=== PATIENT | male | born 1965 | race Caucasian/White ===

== ENCOUNTER 2023-06-07 15:47 | Emergency (ER) | payer BC, OTHER ==
[2023-06-07] MEDS ORDERED: Diphtheria,Pertussis(Acell),Tetanus Vaccine 0.5 ML Syringe IM ONE (15:51)
[2023-06-07] MEDS ORDERED: Bacitracin Oint 1 GM U/D Packet TOP ONE ×2 (15:52→18:44)
[2023-06-07] MEDS ORDERED: Lidocaine 1% with EPINEPHrine 1:100,000 50 ML MDV SUBCUT ONE (15:52)
[2023-06-07] MEDS ORDERED: ceFAZolin 1 GM Vial IM ONE (15:53)
[2023-06-07] MEDS ORDERED: Sodium Chloride 0.9% 10 ML Syringe FLUSH PRN (15:54)
[2023-06-07] MEDS ORDERED: fentaNYL 50 MCG/ML SDV IVPUSH ONE (15:55)
[2023-06-07] MEDS ORDERED: Naloxone 0.4 MG/ML SDV IVPUSH PRN (15:55)
[2023-06-07] MEDS ORDERED: ceFAZolin 1 GM in Sodium Chloride 0.9% 50 ML IV ONE (15:55)
== END 2023-06-07 19:24 | disposition home or self-care (01) ==
LOC: JP.ED 15:47
DX: S61.421A Laceration with foreign body of right hand, initial encounter (principal); E11.9 Type 2 diabetes mellitus without complications; I10 Essential (primary) hypertension; Z79.4 Long term (current) use of insulin; Z88.0 Allergy status to penicillin; W23.1XXA Caught, crushed, jammed, or pinched between stationary objects, initial encounter; Z79.899 Other long term (current) drug therapy; Z23 Encounter for immunization; Z79.84 Long term (current) use of oral hypoglycemic drugs
CPT/HCPCS: 12034; 73120; 90471; 90715; 96365; 96375; 99283; J0690; J3010; J3490

== ENCOUNTER 2023-06-16 08:45 | Day surgery (SDC) | payer OTHER ==
[~2023-06-16 08:45] MED LIST: Bupivacaine 0.5% 50 ML MDV ONE; Lidocaine 1% with EPINEPHrine 1:100,000 50 ML MDV ONE; Lidocaine 2% Jelly 10 ML Urojet ONE
[2023-06-16] MEDS ORDERED: Propofol 200 MG/20 ML SDV ONE (09:05)
[2023-06-16] MEDS ORDERED: Midazolam 1 MG/ML 2 ML SDV ONE (09:06)
[2023-06-16] MEDS ORDERED: fentaNYL 100 MCG/2 ML SDV ONE (09:06)
[2023-06-16] MEDS ORDERED: Sodium Chloride 0.9% 1,000 ML IV SCH (09:30)
[2023-06-16] MEDS ORDERED: ceFAZolin 2 GM in Premix Bag 1 BAG IV ONE (10:00)
== END 2023-06-16 12:40 | disposition home or self-care (01) ==
LOC: JP.SDS 08:45
PROVIDERS: ATTEND Surgery
DX: S61.401A Unspecified open wound of right hand, initial encounter (principal); I10 Essential (primary) hypertension; E11.9 Type 2 diabetes mellitus without complications
CPT/HCPCS: 11042; J0690; J2250; J2704; J3010; J7030; J3490